=== PATIENT | male | born 1945 | race Caucasian/White ===

== ENCOUNTER → 2018-06-23 | Outpatient (CLI) | payer MEDICARE, OTHER ==
[~2018-06-23] MED LIST: ASPI-496 PO; BUPR-86 PO; ESOM20CA PO; SIMV40TA3 PO
[2018-06-23 10:45] LABS: BASOPHILS # (AUTO) 0.03 x10^3/uL (0-0.1); BASOPHILS % (AUTO) 1 % (0-1); EOSINOPHILS # (AUTO) 0.11 x10^3/uL (0-0.4); EOSINOPHILS % (AUTO) 2 % (1-7); LYMPHOCYTES # (AUTO) 1.79 x10^3/uL (1-3.4); LYMPHOCYTES % (AUTO) 26 % (22-44); MD NO; MEAN CORPUSCULAR HEMOGLOBIN 30.4 pg (27.5-34.5); MEAN CORPUSCULAR HGB CONC 33.5 g/dL (33.2-36.2); MEAN CORPUSCULAR VOLUME 90.6 fL (81-97); MONOCYTES # (AUTO) 0.69 x10^3/uL (0.2-0.8); MONOCYTES % (AUTO) 10 % (2-9); NEUTROPHILS # (AUTO) 4.27 x10^3/uL (1.8-6.8); NEUTROPHILS % (AUTO) 62 % (42-75); PLATELET COUNT 238 x10^3/uL (130-400); RED BLOOD COUNT 5.64 x10^6/uL (4.38-5.82); RED CELL DISTRIBUTION WIDTH 14.4 % (9.4-14.8)
[2018-06-23 10:49] LABS: ALANINE AMINOTRANSFERASE 98 U/L (12-78); ALBUMIN 4.1 g/dL (3.4-5.0); ANION GAP 4 mmol/L (5-15); CALCIUM 9.2 mg/dL (8.5-10.1); CHLORIDE 107 mmol/L (98-107); CREATININE 1.16 mg/dL (0.7-1.3)
[2018-06-23 10:51] LABS: ALKALINE PHOSPHATASE 86 U/L (45-117); BILIRUBIN,TOTAL 0.6 mg/dL (0.2-1.0); TOTAL PROTEIN 7.5 g/dL (6.4-8.2)
== END | disposition home or self-care (01) ==
LOC: STAR 09:30
PROVIDERS: ATTEND Orthopaedic Surgery
DX: Z01.818 Encounter for other preprocedural examination (principal); I45.10 Unspecified right bundle-branch block; R94.31 Abnormal electrocardiogram [ECG] [EKG]; Z98.890 Other specified postprocedural states
CPT/HCPCS: 36415; 80053; 85025; 87081; 93005

== ENCOUNTER 2018-07-05 05:23 | Inpatient (IN) | payer MEDICARE, OTHER ==
[2018-06-23 10:14] VITALS: BP 148/97
[~2018-07-05] VITALS: Ht 185.4 cm; Wt 102.6 kg
[2018-07-05] MEDS ORDERED: LACTATED RINGERS 1,000 ML IV SCH (06:04)
[2018-07-05] MEDS ORDERED: SODIUM CHLORIDE 0.9% 50 ML ONE (06:24)
[2018-07-05] MEDS ORDERED: ROPIvacaine/PF 0.2%, 20 ML ONE (06:24)
[2018-07-05] MEDS ORDERED: KETOROLAC 60 MG/2 ML ONE (06:24)
[2018-07-05] MEDS ORDERED: VANCOMYCIN 1,000 MG ONE (06:24)
[2018-07-05] MEDS ORDERED: TRANEXAMIC ACID 100 MG/ML, 10ML ONE ×2 (06:24)
[2018-07-05] MEDS ORDERED: EPINEPHRINE 1 MG/ML, 1ML ONE (06:25)
[2018-07-05] MEDS ORDERED: FENTANYL PF 250 MCG/5ML ONE ×2 (06:39→07:38)
[2018-07-05] MEDS ORDERED: MIDAZOLAM 1 MG/ML, 2ML ONE (06:39)
[2018-07-05] MEDS ORDERED: PROPOFOL 10 MG/ML, 20ML ONE (06:40)
[2018-07-05] MEDS ORDERED: SUCCINYLCHOLINE 20 MG/ML, 10ML ONE (06:40)
[2018-07-05] MEDS ORDERED: ROCURONIUM 10MG/ML,5ML ONE (06:40)
[2018-07-05] MEDS ORDERED: GABAPENTIN 300 MG CAPSULE PO ONE (07:00)
[2018-07-05] MEDS ORDERED: ACETAMINOPHEN 500 MG TABLET PO ONE (07:00)
[2018-07-05] MEDS ORDERED: SCOPOLAMINE PATCH, 1.5MG PATCH.TD72 TD ONE (07:00)
[2018-07-05] MEDS ORDERED: DIAZEPAM 5 MG TABLET PO ONE (07:00)
[2018-07-05] MEDS ORDERED: NEOSTIGMINE 1 MG/ML, 10ML ONE (07:14)
[2018-07-05] MEDS ORDERED: GLYCOPYRROLATE 0.2MG/1ML, 5ML ONE (07:14)
[2018-07-05] MEDS ORDERED: CEFAZOLIN 1,000 MG ONE ×2 (08:58)
[2018-07-05] MEDS ORDERED: DEXAMETHASONE 4 MG/ML, 1ML ONE ×2 (08:58)
[2018-07-05] MEDS ORDERED: ONDANSETRON 2MG/ML, 2ML ONE ×2 (08:58)
[2018-07-05] MEDS ORDERED: D5%-0.45NACL+KCL 20MEQ 1,000 ML IV SCH (09:09)
[2018-07-05] MEDS ORDERED: TRANEXAMIC ACID 1,000 MG in SODIUM CHLORIDE 0.9% 100 ML IVPB ONE (09:15)
[2018-07-05] MEDS ORDERED: MEPERIDINE/PF 25MG/0.5ML IVPush PRN (09:30)
[2018-07-05] MEDS ORDERED: HYDROcodone/APAP 5/325 TABLET PO PRN (09:30)
[2018-07-05] MEDS ORDERED: ACETAMINOPHEN 650 MG/20.3 ML UDC PO PRN (09:30)
[2018-07-05] MEDS ORDERED: ONDANSETRON ODT 8 MG PO PRN (09:30)
[2018-07-05] MEDS ORDERED: MAGNESIUM HYDROXIDE 8%, 30ML UDC PO PRN (09:30)
[2018-07-05] MEDS ORDERED: OXYcodone 5 MG/5 ML ORAL.SOL UDC PO PRN (09:30)
[2018-07-05] MEDS ORDERED: MIDAZOLAM 1 MG/ML, 2ML IV PRN (09:30)
[2018-07-05] MEDS ORDERED: FENTANYL PF 100 MCG/2ML IV PRN (09:30)
[2018-07-05] MEDS ORDERED: LORazepam 2 MG/ML, 1ML IVPush PRN (09:30)
[2018-07-05] MEDS ORDERED: DIAZEPAM 5 MG/ML, 2ML IVPush PRN (09:30)
[2018-07-05] MEDS ORDERED: HYDROmorphone 1 MG/ML, 1ML INJ IV PRN (09:30)
[2018-07-05] MEDS ORDERED: PROMETHAZINE 12.5 MG SUPP PR PRN (09:30)
[2018-07-05] MEDS ORDERED: EPHEDRINE 50 MG/ML, 1ML IVPush PRN (09:30)
[2018-07-05] MEDS ORDERED: DIPHENHYDRAMINE 25 MG CAPSULE PO PRN (09:30)
[2018-07-05] MEDS ORDERED: MORPHINE SULFATE 4 MG/ML, 1ML IVPush PRN (09:30)
[2018-07-05] MEDS ORDERED: SENNA/DOCUSATE TABLET PO PRN (09:30)
[2018-07-05] MEDS ORDERED: BISACODYL 10 MG SUPP PR PRN (09:30)
[2018-07-05] MEDS ORDERED: ALBUTEROL SULFATE 2.5 MG/3 ML NPPB PRN (09:30)
[2018-07-05] MEDS ORDERED: HYDROmorphone 2 MG/ML, 1ML IVPush PRN (09:30)
[2018-07-05] MEDS ORDERED: DIPHENHYDRAMINE 50 MG/ML, 1ML IVPush PRN (09:30)
[2018-07-05] MEDS ORDERED: PROMETHAZINE 25 MG/ML, 1ML IV PRN (09:30)
[2018-07-05] MEDS ORDERED: LABETALOL 5 MG/ML SYRINGE IV PRN (09:30)
[2018-07-05] MEDS ORDERED: ALUMINUM/MAG/SIMETHICONE 30 ML UDC PO PRN (09:30)
[2018-07-05] MEDS ORDERED: hydrALAzine 20 MG/ML, 1ML IV PRN (09:30)
[2018-07-05] MEDS ORDERED: ONDANSETRON 2MG/ML, 2ML IV PRN ×2 (09:30)
[2018-07-05] MEDS ORDERED: HALOPERIDOL 5 MG/ML IV PRN (09:30)
[2018-07-05] MEDS ORDERED: DIAZEPAM 5 MG TABLET PO PRN (09:30)
[2018-07-05] MEDS ORDERED: HYDROmorphone 2 MG/ML, 1ML ONE (10:32)
[2018-07-05] MEDS: OXYcodone IR 5MG TABLET PO PRN ×2 (11:41→16:00)
[2018-07-05 12:13] VITALS: BP 125/79
[2018-07-05] MEDS ORDERED: OXYC5CAP2 PO (15:44)
[2018-07-05] MEDS ORDERED: CEFAZOLIN PMX 2GM/50ML 50 ML IVPB SCH (17:00)
[2018-07-05] MEDS ORDERED: ASPIRIN 81 MG TABLET EC PO SCH (18:00)
[2018-07-05] MEDS ORDERED: SIMVASTATIN 40 MG TABLET PO SCH (21:00)
[2018-07-05] MEDS ORDERED: DOCUSATE 100 MG CAPSULE PO SCH (21:00)
[2018-07-06] MEDS ORDERED: DEXAMETHASONE 4 MG/ML, 1ML IVPush SCH (06:00)
[2018-07-06] MEDS ORDERED: PANTOPROZOLE 40MG TABLET PO SCH (06:00)
[2018-07-06] MEDS ORDERED: BUPROPION SR 150 MG TABLET PO SCH (09:00)
[2018-07-06] MEDS ORDERED: KETOROLAC 30 MG/1 ML IV SCH (09:30)
== END 2018-07-05 16:48 | disposition home or self-care (01) | DRG 470 ==
LOC: ORIP 05:23 → 4NOR 10:05 → DCLOUNGE 16:36
PROVIDERS: ADMIT Orthopaedic Surgery; ATTEND Orthopaedic Surgery
PROC: 0SR906A Replacement of Right Hip Joint with Oxidized Zirconium on Polyethylene Synthetic Substitute, Uncemented, Open Approach (ICD-10-PCS; principal; 2018-07-05 07:30)
DX: M16.11 Unilateral primary osteoarthritis, right hip (principal); K21.9 Gastro-esophageal reflux disease without esophagitis; E78.5 Hyperlipidemia, unspecified; F41.9 Anxiety disorder, unspecified; Z88.6 Allergy status to analgesic agent; Z88.2 Allergy status to sulfonamides
CPT/HCPCS: 36415; 72170; 86850; 86900; C1713; J0171; J0690; J1100; J1170; J1885; J2250; J2405; J2704; J2710; J2795; J3010; J3370; J3490; C1776; J0330; J3480; J7120

== ENCOUNTER 2018-07-10 20:45 | Emergency (ER) | payer MEDICARE, OTHER ==
[~2018-07-10] VITALS: Ht 185.4 cm; Wt 106.0 kg
[~2018-07-10 20:45] MED LIST changes: +OXYC5CAP2 PO
[2018-07-10 20:49] VITALS: BP 173/85
--- NOTE | 2018-07-10 21:13 | NUR ---
PT TO IMAGING.
--- NOTE | 2018-07-10 22:08 | NUR ---
PT IN [place].
== END 2018-07-10 22:54 | disposition home or self-care (01) ==
LOC: ED 21:49
DX: M25.551 Pain in right hip (principal); X58.XXXA Exposure to other specified factors, initial encounter; Y93.89 Activity, other specified; Y92.009 Unspecified place in unspecified non-institutional (private) residence as the place of occurrence of the external cause; Y99.8 Other external cause status
CPT/HCPCS: 72170; 99284